=== PATIENT | male | born 1950 | race Caucasian/White ===

== ENCOUNTER 2021-04-22 19:08 | Emergency (ER) | payer MEDICARE, OTHER ==
[~2021-04-22] VITALS: Ht 180.3 cm; Wt 83.5 kg
[~2021-04-22 19:08] MED LIST: K-DUR20 ME1; NOVOLOG 70100 UNITS/; Z DILTIAZEM; Z.0.CLONIDINE HCL0.2; Z.0.FINASTERIDE5 MG; Z.0.FLOMAX0.4 MG; Z.0.GABAPENTIN600 MG; Z.0.LASIX20 MG; Z.0.LEXAPRO10 MG; Z.2.METFORMIN HCL500; [UNRECOGNIZED DRUG - REMARK]
[2021-04-22] MEDS ORDERED: SODIUM CHLORIDE 0.9% 100 ML ONE (21:01)
[2021-04-22] MEDS ORDERED: CEPHALEXIN500 MG PO (21:28)
[2021-04-22] MEDS ORDERED: CLEOCIN HCL300 MG PO (21:31)
[2021-04-22 22:05] VITALS: BP 133/76
== END 2021-04-22 22:07 | disposition home or self-care (01) ==
LOC: FSED 19:37
DX: L03.114 Cellulitis of left upper limb (principal); S50.12XA Contusion of left forearm, initial encounter; W01.198A Fall on same level from slipping, tripping and stumbling with subsequent striking against other object, initial encounter; Y93.01 Activity, walking, marching and hiking; Y92.008 Other place in unspecified non-institutional (private) residence as the place of occurrence of the external cause; I10 Essential (primary) hypertension; D64.9 Anemia, unspecified; G62.9 Polyneuropathy, unspecified
CPT/HCPCS: 73090; 80053; 85025; 99284; J0690; J7050

== ENCOUNTER 2024-02-05 17:16 | Emergency (ER) | payer MEDICARE ==
[~2024-02-05] VITALS: Ht 180.3 cm; Wt 76.0 kg
[~2024-02-05 17:16] MED LIST changes: +CEPHALEXIN500 MG PO; +CLEOCIN HCL300 MG PO
[2024-02-05] MEDS ORDERED: IBUPROFEN200 MG PO (18:34)
[2024-02-05] MEDS ORDERED: TYLENOL325 MG PO (18:34)
[2024-02-05] MEDS ORDERED: DOXYCYCLINE HY100 MG PO (18:34)
[2024-02-05 20:46] VITALS: PULSE 60; RESP 18; TEMP 97.9; O2SAT 100
== END 2024-02-05 20:46 | disposition home or self-care (01) ==
LOC: FSED 17:20
DX: S92.422B Displaced fracture of distal phalanx of left great toe, initial encounter for open fracture (principal); G89.11 Acute pain due to trauma; I10 Essential (primary) hypertension; E11.9 Type 2 diabetes mellitus without complications; N40.0 Benign prostatic hyperplasia without lower urinary tract symptoms; W22.8XXA Striking against or struck by other objects, initial encounter; Y93.89 Activity, other specified; Y99.8 Other external cause status; Z88.1 Allergy status to other antibiotic agents; Z79.4 Long term (current) use of insulin; Z79.84 Long term (current) use of oral hypoglycemic drugs; Z79.1 Long term (current) use of non-steroidal anti-inflammatories (NSAID); Z79.899 Other long term (current) drug therapy; Z86.2 Personal history of diseases of the blood and blood-forming organs and certain disorders involving the immune mechanism
CPT/HCPCS: 96372; 99284